=== PATIENT | female | born 1990 | race Caucasian/White ===

== ENCOUNTER 2019-01-15 11:46 | Emergency (ER) | payer MEDICAID ==
[~2019-01-15] VITALS: Ht 160 cm; Wt 58.2 kg
[2019-01-15 11:51] VITALS: BP 119/71; PULSE 102; RESP 18; Ht 160 cm; Wt 58.2 kg
[2019-01-15] MEDS ORDERED: KETOROLAC 30 MG INJ IM STA (12:33)
--- NOTE | 2019-01-15 12:49 | ERD ---
ER Documentation Chief Complaint Chief Complaint pelvic pain with periods x4 months HPI 28-year-old female presenting to the emergency department complaining of sharp, severe suprapubic pain bilaterally which began today. Patient also started her menstrual cycle today. She states that her past 3-4 cycles she has had severe cramping. She tried no medication for relief of symptoms at home. She denies any right lower quadrant pain. She denies any fevers, chills, nausea, vomiting, diarrhea, or other symptoms at this time. ROS All systems reviewed and are negative except as per history of present illness. Medications Home Meds Active Scripts Naproxen* (Naprosyn*) 500 Mg Tablet, 500 MG PO BID PRN for PAIN AND/OR INFLAMMATION, #30 TAB Prov:SHAWNA GOLDMAN PA-C 01/15/19 Cephalexin* (Keflex*) 500 Mg Capsule, 500 MG PO QID for 5 Days, CAP Prov:SHAWNA GOLDMAN PA-C 01/15/19 Allergies Allergies: Coded Allergies: No Known Allergy (Unverified , 01/15/19) PMhx/Soc Medical and Surgical Hx: pt denies Medical Hx, pt denies Surgical Hx Hx Alcohol Use: No Hx Substance Use: No Hx Tobacco Use: No Smoking Status: Never smoker FmHx Family History: No diabetes Physical Exam Vitals Vital Signs Date Temp Pulse Resp B/P (MAP) Pulse Ox O2 O2 Flow FiO2 Time Delivery Rate 01/15/19 98.2 102 18 119/71 98 11:51 (87) Physical Exam const: No acute distress Head: Atraumatic Eyes: Normal Conjunctiva ENT: Normal External Ears, Nose and Mouth. Neck: Full range of motion. No meningismus. Resp: Clear to auscultation bilaterally Cardio: Regular rate and rhythm, no murmurs Abd: Soft, Tenderness palpation of the suprapubic region bilaterally., No McBurney's point tenderness, no rebound tenderness or guarding , non distended. Normal bowel sounds Skin: No petechiae or rashes Back: No midline or flank tenderness Ext: No cyanosis, or edema Neur: Awake and alert Psych: Normal Mood and Affect Results 24 hrs Laboratory Tests Test 01/15/19 12:46 01/15/19 12:49 Urine Color YELLOW Urine Clarity SLIGHTLY CLOUDY Urine pH 6.0 Urine Specific [place] 1.027 Urine Ketones TRACE mg/dL Urine Nitrite POSITIVE mg/dL Urine Bilirubin NEGATIVE mg/dL Urine Urobilinogen NEGATIVE mg/dL Urine Leukocyte Esterase NEGATIVE Meera/ul Urine Microscopic RBC 5 /HPF Urine Microscopic WBC 3 /HPF Urine Squamous Epithelial Cells FEW /HPF Urine Bacteria FEW /HPF Urine Mucus MANY /HPF Urine Hemoglobin 3+ mg/dL Urine Glucose NEGATIVE mg/dL Urine Total Protein NEGATIVE mg/dl POC Beta HCG, Qualitative NEGATIVE Current Medications Medications Dose Sig/Brett Start Time Status Last (Trade) Ordered Route PRN Stop Time Admin Dose Reason Admin Ketorolac 30 mg ONCE STAT 01/15/19 DC 01/15/19 Tromethamine IM 12:33 12:52 (Toradol) 01/15/19 12:34 [place] [id number] Radiology Main Line: [phone] DIAGNOSTIC IMAGING REPORT Patient: MARLENE OSBORNE : 1990 Age: 28 Sex: F MR #: [id number] DOS: 01/15/19 0000 Ordering MD: SHAWNA GOLDMAN PA-C Location: [facility] Room/Bed: PROCEDURE: US Pelvis Non-OB with endovaginal scanning and Doppler CLINICAL INDICATION: Pelvic pain TECHNIQUE: Images were taken during real time trans pelvic and endovaginal interrogation. Color-flow and Doppler interrogation of the ovaries was performed. COMPARISON: None FINDINGS: Uterus: The uterus is retroverted and within normal limits in size measuring 6.4 cm in sagittal diameter and 4.6 x 3.6 cm in cross diameter. The endometrial stripe measures 8.5 mm. Ovaries: The right ovary measures 2.2 x 1.7 x 1.0 cm and appears unremarkable. The left ovary measures 2.8 x 2.2 x 1.3 cm and appears unremarkable. Vascular flow is demonstrated in each ovary on Doppler. Adnexa: No adnexal mass is identified. Free intraperitoneal fluid: A small amount of intraperitoneal fluid with low level internal echoes is seen in the cul-de-sac. IMPRESSION: 1. Retroverted normal sized uterus with an 8.5 mm endometrial stripe. 2. Normal appearing ovaries with each demonstrating vascular flow on Doppler. 3. Small amount of fluid seen in the cul-de-sac with low level internal echoes. 4. No adnexal mass is identified. Physician Mike Date Time Electronically viewed and signed by Physician Mike on 01/15/2019 14:37 RH/ CC: SHAWNA GOLDMAN PA-C [id number] Procedures/MDM 28-year-old female presenting to the emergency department complaining of severe suprapubic pain which began today. Patient was significantly tender on exa mination of the suprapubic region. Patient was administered Toradol in the department with good response. On reevaluation she was improved. Ultrasound of the pelvis revealed Retroverted normal sized uterus with an 8.5 mm endometrial stripe. 2. Normal appearing ovaries with each demonstrating vascular flow on Doppler. 3. Small amount of fluid seen in the cul-de-sac with low level internal echoes. 4. No adnexal mass is identified.. History, physical examination, work-up most consistent with pelvic pain secondary to menstrual cycle. Much lower suspicion for ectopic , tubo-ovarian abscess, PID, ovarian torsion, or other emergencies. Patient will be discharged home in stable condition with strict ER precautions. Patient will need to follow-up with her primary care physician and [employer] physician within the next 24 to 48 hours. Shared my medical decision making the patient and she understands and agrees with plan. Departure Diagnosis: Primary Impression: Acute pain in female pelvis Condition: Fair Patient Instructions: Pelvic Pain, Unknown Cause Additional Instructions: Follow up with your PCP within the next 1-3 days for a repeat evaluation. If you require a referral to a specialist, your Primary Care Provider may be able to provide this for you. In most patient cases, a referral is not required. If you have further questions regarding this matter, please ask your Primary Care Provider. Return the the emergency department immediately if symptoms worsen or change. If you have any questions regarding medications, ask your pharmacist or us before you leave. If any adverse reactions, occur while taking your medications, discontinue the treatment and return to the emergency department immediately. If any new or worsening symptoms, uncontrolled fevers, or other unexplained symptoms occur, return to the emergency department immediately. Take your medications as directed, and complete the entire course of treatment. SHAWNA GOLDMAN PA-C Jan 15, 2019 12:49
[2019-01-15] MEDS ORDERED: CEPH-443 PO (14:45)
[2019-01-15] MEDS ORDERED: NAPR-985 PO (14:45)
== END 2019-01-15 15:02 | disposition home or self-care (01) ==
LOC: FTE 11:46
DX: R10.2 Pelvic and perineal pain (principal)
CPT/HCPCS: 76830; 76856; 81001; 81025; 96372; J1885; Z7502